=== PATIENT | male | born 1990 | race Caucasian/White ===

== ENCOUNTER 2018-06-05 10:54 | Emergency (ER) | payer OTHER ==
[2018-06-05 11:24] LABS: PLATELET COUNT 259 10^3/uL (150-400)
--- NOTE | 2018-06-05 11:42 | EDPHY ---
H & P Stated Complaint: bloody sputum/transient cp last night post surg 06/03 Time Seen by Provider: 06/05/18 11:17 HPI/ROS: CHIEF COMPLAINT: Chest pain, hemoptysis HISTORY OF PRESENT ILLNESS: 28-year-old male presents with chest pain and hemoptysis. 2 days s/p right AC separation repair. Onset of sharp and stabbing left-sided chest pain yesterday. Pain was moderate and increased with deep inspiration and movement. This morning he awoke with hemoptysis. Coughing lasted approximately 1 hr and he coughed up approximately 1 tbsp bloody sputum. The chest pain has resolved today. No shortness of breath, leg swelling or prior VTE. REVIEW OF SYSTEMS: complete 10 point ROS reviewed and is negative except for the noted elements in the HPI - Personal History Current Tetanus Diphtheria and Acellular Pertussis (TDAP): Yes - Medical/Surgical History Hx Asthma: No Hx Chronic Respiratory Disease: No Hx Diabetes: No Hx Cardiac Disease: No Hx Renal Disease: No Hx Cirrhosis: No Hx Alcoholism: No Hx HIV/AIDS: No Hx Splenectomy or Spleen Trauma: No Other PMH: r shoulder surg - Social History Smoking Status: Former smoker Alcohol Use: Sober Drug Use: None - Physical Exam Exam: General Appearance: Alert, pleasant, well-appearing Eyes: Pupils equal and round, no conjunctival pallor or injection ENT, Mouth: Mucous membranes moist Neck: Normal inspection Respiratory: Lungs are clear to auscultation anteriorly Cardiovascular: Regular rate and rhythm Gastrointestinal: Abdomen is soft and nontender Neurological: A&O, nonfocal exam Skin: Warm and dry, no rash Extremities: RUE in sling, no swelling or tenderness of RUE; no calf tenderness or pedal edema Psychiatric: Mood and affect normal Constitutional: Initial Vital Signs Temperature (C) 36.9 C 06/05/18 10:56 Heart Rate 78 06/05/18 10:56 Respiratory Rate 18 06/05/18 10:56 Blood Pressure 109/56 L 06/05/18 10:56 O2 Sat (%) 98 06/05/18 10:56 O2 Delivery Mode Room Air Allergies/Adverse Reactions: No Known Allergies Allergy (Unverified 06/05/18 10:56) Home Medications: Medication Instructions Recorded Oxycodone HCl 06/05/18 Medical Decision Making - Diagnostics EKG Interpretation: EKG interpreted by me reveals sinus arrhythmia, rate 60, no ST or T segment changes. Interpretation: normal EKG Imaging Results: Chest/Thorax CTA 06/05/18 11:38 Impression: 1. No acute central or segmental pulmonary embolus. 2. Groundglass opacities at the left lung base may represent small amount of hemorrhage given symptoms, atelectasis, or developing pneumonia. 3. Bilateral pulmonary nodules, largest measuring 4.4 mm in the left lower lobe. In this age group, these are almost certainly benign. Findings and recommendations discussed with WILSON NUNEZ at 1223 hour, 2017. Imaging: Discussed imaging studies w/ call center support consultant Radiologist, I viewed and interpreted images myself ED Course/Re-evaluation: Patient presents with chest pain and hemoptysis 2 days status post right AC repair. Concerning for acute pulmonary embolism in the perioperative period. Moderate risk for PE by Well's criteria. Will need to proceed to CT pulmonary angiogram, as D-dimer will not be useful in this setting. CT scan results discussed with the patient. No evidence of pulmonary embolism. There is a small area of ground-glass opacity in the left lower lobe, possibly secondary to blood versus pneumonia. ?blood related to recent surgery/ intubation. The patient does not have symptoms of pneumonia. He is afebrile, no cough and no leukocytosis. Abx not indicated. Results were discussed with the patient. Will d/c home. He will return for signs of pneumonia, increasing hemoptysis or any concerns. Differential Diagnosis: Differential diagnosis includes though it is not limited to pneumonia, pneumothorax, pulmonary embolism, aortic dissection, pericarditis, acute coronary syndrome. - Data Points Laboratory Results: Laboratory Results 06/05/18 11:05 06/05/18 11:05 Departure - Departure Disposition: Home, Routine, Self-Care Clinical Impression: Hemoptysis Condition: Good Instructions: Hemoptysis (ED) Additional Instructions: Your CT scan shows a small area of opacity, likely a small amount of blood in the left lung. This may be related to recent intubation for surgery. Less likely is early pneumonia. You do not have a blood clot on the CT scan. Followup with your physician if symptoms persist in 2-3 days. Return for worsening symptoms, fever, cough, shortness of breath or any concerns. Referrals: Angel Nation MD [Medical Doctor] - As per Instructions
[2018-06-05] MEDS ORDERED: IOPAMIDOL (ISOVUE 370) 100 ML BTL IV ONE (11:50)
[2018-06-05 12:14] VITALS: BP 121/59
--- NOTE | 2018-06-05 12:47 | CPEKG ---
Test Reason : OPEN Blood Pressure : / mmHG Vent. Rate : 060 BPM Atrial Rate : 064 BPM P-R Int : 132 ms QRS Dur : 092 ms QT Int : 398 ms P-R-T Axes : 048 032 014 degrees QTc Int : 398 ms Sinus arrhythmia Confirmed by Glo Fox ([id number]) on 06/05/2018 12:46:38 PM Referred By: Confirmed By:Glo Fox
== END 2018-06-05 13:00 | disposition home or self-care (01) ==
DX: R04.2 Hemoptysis (principal); R07.9 Chest pain, unspecified; Z87.891 Personal history of nicotine dependence
CPT/HCPCS: Q9967